=== PATIENT | female | born 1985 | race Two or more races ===

== ENCOUNTER 2024-01-24 13:15 | Day surgery (SDC) | payer OTHER ==
[2024-01-22 16:44] LABS: HEMATOCRIT 41.1 % (36.0-45.00); MEAN CELL VOLUME 94.3 fL (80.00-100.00); MEAN CORPUSCULAR HEMOGLOBIN 32.1 pg (27.00-32.0); MEAN CORPUSCULAR HGB CONC 34.1 g/dl (32.0-36.0); PLATELET COUNT 209 K/uL (150-450); RED BLOOD COUNT 4.36 M/uL (4.00-6.00); RED CELL DISTRIBUTION WIDTH 13.1 % (11.5-14.5)
[2024-01-22 17:17] LABS: INR 0.96; PROTHROMBIN TIME 10.5 SECONDS (9.0-11.5)
[2024-01-22 18:31] LABS: RH POSITIVE
[2024-01-24] MEDS ORDERED: POVIDONE-IODINE 118 ML BOTT TOP ONE (16:15)
[2024-01-24] MEDS ORDERED: CEFAZOLIN SODIUM 1,000 MG VIAL IV ONE (16:15)
== END 2024-01-24 18:45 | disposition home or self-care (01) ==
LOC: CIR.AMB 13:15
PROVIDERS: ATTEND Obstetrics & Gynecology Maternal & Fetal Medicine
DX: O02.1 Missed abortion (principal)

== ENCOUNTER 2024-04-23 19:05 | Emergency (ER) | payer OTHER ==
[~2024-04-23] VITALS: Ht 160 cm; Wt 55.3 kg
[2024-04-23 19:34] VITALS: BP 100/68; O2SAT 100
[2024-04-23] MEDS ORDERED: DEXAMETHASONE SODIUM PHOSPHATE 4 MG/ML VIAL IM ONE (21:30)
[2024-04-23] MEDS ORDERED: KETOROLAC TROMETHAMINE 60 MG VIAL IM ONE ×2 (21:30→22:01)
[2024-04-23] MEDS ORDERED: DEXAMETHASONE SODIUM PHOSPHATE 4 MG/ML VIAL ONE (22:01)
[2024-04-23] MEDS ORDERED: IBU600 MG PO (23:16)
== END 2024-04-23 23:27 | disposition home or self-care (01) ==
LOC: ER 19:07
DX: M71.572 Other bursitis, not elsewhere classified, left ankle and foot (principal)

== ENCOUNTER 2024-09-25 18:44 | Inpatient (IN) | payer OTHER ==
[~2024-09-25] VITALS: Ht 160 cm; Wt 56.2 kg
[~2024-09-25 18:44] MED LIST: IBU600 MG PO
--- NOTE | 2024-09-25 18:49 | NUR ---
SE RECIBE PTE ALERTA Y ORIENTADA X3 EN AMBULANCIA, PTE REFIERE VENIR [facility], PTE REFIERE DOLOR PELVICO AL MOMENTO. SE MIDEN S/V A PTE Y SE UBICA.
[2024-09-25] MEDS ORDERED: CLINDAMYCIN PHOSPHATE 900 MG in 0.9 % SODIUM CHLORIDE 100 ML IV SCH (18:52)
[2024-09-25] MEDS ORDERED: GENTAMICIN SULFATE 40 MG/ML VIAL IV SCH (18:52)
[2024-09-25] MEDS ORDERED: FAMOTIDINE/PF 20 MG/2 ML VIAL IV SCH (18:52)
[2024-09-25 18:55] VITALS: O2SAT 97
[2024-09-25] MEDS ORDERED: PIPERACILLIN/TAZOBACTAM SODIUM 3.375 GM VIAL IV ONE (19:00)
[2024-09-25] MEDS ORDERED: MORPHINE SULFATE 4 MG/ML VIAL IV PRN ×2 (19:00→22:08)
[2024-09-25] MEDS ORDERED: 0.9 % SODIUM CHLORIDE 500 ML IV ONE (19:00)
--- NOTE | 2024-09-25 19:12 | NUR ---
SE EDUCA A PTE SOBRE TX MEDICO, SE SHANE MUESTRAS DE LABORATORIO UTILIZANDO MEDIDAS ASEPTICAS. SE COLOCAN MEDICAMENTOS FABIEN ORDEN MEDICA, PTE TOLERA LOS MISMOS.
[2024-09-25 19:28] LABS: BASO % 0.3 % (0.1-1.2); EOS # 0.00 (0.04-0.54); EOS % 0.0 % (0.7-7.0); LYMPH # 1.49 (1.18-3.74); LYMPH % 12.5 % (19.3-53.1); MEAN PLATELET VOLUME 10.40 fl (9.4-12.4); MONO # 0.90 (0.24-0.82); MONO % 7.5 % (4.7-12.5); NEUT # 9.49 (1.56-6.13); NEUT % 79.4 % (34.0-71.1); RED CELL DISTRIBUTION WIDTH 12.9 % (11.6-14.4)
[2024-09-25 19:48] LABS: INR 1.05
[2024-09-25 19:52] LABS: ALT/SGPT 25.0 U/L (12-78); AST/SGOT 11.0 U/L (15-37); BILIRUBIN TOTAL 0.57 mg/dL (0.3-1.2); BUN CREA RATIO 21.0 (7.0-25.0); CREATININE SERUM 0.56 mg/dL (0.55-1.02); GFR 120.52; GLOBULINA 3.0 G/DL (2.4-3.5); GLUCOSE FASTING 107.0 mg/dL (65-100); OSMOLALITY SERUM 285.0 MOSM/KG (275-295)
[2024-09-25 22:09] VITALS: BP 104/69
[2024-09-26 00:50] VITALS: BP 105/70
[2024-09-26 08:27] VITALS: BP 97/62
[2024-09-26 15:51] VITALS: BP 97/66
[2024-09-26] MEDS ORDERED: BISACODYL 5 MG TABLET.EC PO ONE (18:30)
[2024-09-26] MEDS ORDERED: MAGNESIUM HYDROXIDE 400 MG/5 ML ML PO ONE (18:30)
[2024-09-26] MEDS ORDERED: ACETAMINOPHEN 500 MG GEL..CAP PO PRN (21:00)
[2024-09-26 23:33] VITALS: BP 94/57
[2024-09-27 08:00] VITALS: BP 95/60
[2024-09-27 16:42] VITALS: BP 99/65
[2024-09-27 20:55] VITALS: BP 102/69
[2024-09-27 23:32] VITALS: BP 97/66
[2024-09-28 06:51] LABS: BASO % 0.2 % (0.1-1.2); EOS # 0.33 (0.04-0.54); EOS % 4.0 % (0.7-7.0); LYMPH # 1.51 (1.18-3.74); LYMPH % 18.5 % (19.3-53.1); MEAN PLATELET VOLUME 11.70 fl (9.4-12.4); MONO # 0.69 (0.24-0.82); MONO % 8.5 % (4.7-12.5); NEUT # 5.57 (1.56-6.13); NEUT % 68.4 % (34.0-71.1); RED CELL DISTRIBUTION WIDTH 13.0 % (11.6-14.4)
[2024-09-28 08:52] VITALS: BP 110/69
[2024-09-28 15:39] VITALS: BP 91/65
[2024-09-29 01:00] VITALS: BP 94/53
[2024-09-29 08:32] VITALS: BP 111/73
[2024-09-29 16:20] VITALS: BP 97/64
[2024-09-30] VITALS: BP 91/51
[2024-09-30 08:03] VITALS: BP 100/67
== END 2024-09-30 10:17 | disposition home or self-care (01) | DRG 759 ==
LOC: ER → EDBD 18:44 → ER 19:19 → OB/GYN 20:15
PROVIDERS: General Practice; ADMIT Obstetrics & Gynecology; ATTEND Obstetrics & Gynecology
PROC: BU4CZZZ Ultrasonography of Uterus and Ovaries (ICD-10-PCS; principal; 2024-09-28)
DX: N70.93 Salpingitis and oophoritis, unspecified (principal)

== ENCOUNTER 2024-10-15 08:00 | Outpatient (CLI) | payer OTHER ==
[2024-10-15 10:46] LABS: BASO % 0.6 % (0.1-1.2); EOS # 0.16 (0.04-0.54); EOS % 1.6 % (0.7-7.0); LYMPH # 1.61 (1.18-3.74); LYMPH % 16.2 % (19.3-53.1); MEAN PLATELET VOLUME 9.50 fl (9.4-12.4); MONO # 0.69 (0.24-0.82); MONO % 6.9 % (4.7-12.5); NEUT # 7.32 (1.56-6.13); NEUT % 73.7 % (34.0-71.1); RED CELL DISTRIBUTION WIDTH 13.2 % (11.6-14.4)
[2024-10-15 11:08] LABS: INR 1.04
[2024-10-15 11:24] LABS: ALT/SGPT 38.0 U/L (12-78); AST/SGOT 28.0 U/L (15-37); BILIRUBIN TOTAL 0.44 mg/dL (0.3-1.2); BUN CREA RATIO 20.0 (7.0-25.0); CREATININE SERUM 0.69 mg/dL (0.55-1.02); GFR 94.72; GLOBULINA 3.9 G/DL (2.4-3.5); GLUCOSE FASTING 90.0 mg/dL (65-100); OSMOLALITY SERUM 283.0 MOSM/KG (275-295)
== END 2024-10-20 08:15 | disposition home or self-care (01) ==
LOC: RAD 08:00 → ADM 09:15 → RAD 10-20 08:15 → EDSTATUS 10-21 09:15 → CIR.AMB 10-21 09:15
PROVIDERS: ATTEND Obstetrics & Gynecology
DX: N83.9 Noninflammatory disorder of ovary, fallopian tube and broad ligament, unspecified (principal); R10.2 Pelvic and perineal pain

== ENCOUNTER 2024-10-20 07:07 | Outpatient (CLI) | payer OTHER | END 2024-10-20 07:17 | disposition home or self-care (01) | LOC: MRI 07:07 | PROVIDERS: ATTEND Obstetrics & Gynecology | DX: D27.0 Benign neoplasm of right ovary (principal); C56.9 Malignant neoplasm of unspecified ovary; N83.201 Unspecified ovarian cyst, right side; R10.2 Pelvic and perineal pain | CPT/HCPCS: 72196; 74182 ==

== ENCOUNTER 2024-11-05 13:05 | Day surgery (SDC) | payer OTHER ==
[2024-11-02 11:44] VITALS: BP 98/67
[2024-11-02 12:01] LABS: COVID-19 AG NEGATIVE (NEGATIVE)
[2024-11-02 13:01] LABS: RH POSITIVE
[~2024-11-05] VITALS: Ht 160 cm; Wt 53.5 kg
[2024-11-05] MEDS ORDERED: KETOROLAC TROMETHAMINE 30 MG VIAL IV NR (16:20)
[2024-11-05] MEDS ORDERED: CEFAZOLIN SODIUM 1,000 MG VIAL IV ONE (17:15)
[2024-11-05] MEDS ORDERED: THROMBIN,HU/FIBRINOGEN/CALCIUM 4 ML SYRINGE TOP ONE (17:15)
[2024-11-05] MEDS ORDERED: METRONIDAZOLE/SODIUM CHLORIDE 500 MG/100 ML PIGGYBACK IV ONE (17:15)
[2024-11-05] MEDS ORDERED: MORPHINE SULFATE 4 MG/ML VIAL IV ONE (17:45)
== END 2024-11-05 20:45 | disposition home or self-care (01) ==
LOC: CIR.AMB 13:05 → OB/GYN 22:45
PROVIDERS: ATTEND Obstetrics & Gynecology Gynecologic Oncology
DX: D27.0 Benign neoplasm of right ovary (principal)